=== PATIENT | male | born 1985 | race African-American/Black ===

== ENCOUNTER 2017-07-19 20:17 | Emergency (ER) | payer SELFPAY ==
--- NOTE | 2017-07-19 21:37 | RADIOLOGY REPORT (SQ) ---
EXAM DESCRIPTION: FINGER RIGHT COMPLETED DATE/TIME: 07/19/2017 9:23 pm REASON FOR STUDY: Pain s/p injury COMPARISON: None. NUMBER OF VIEWS: Three views. TECHNIQUE: AP, lateral, and oblique images acquired of the right fourth finger. LIMITATIONS: None. FINDINGS: MINERALIZATION: Normal. BONES: No acute fracture or dislocation. No worrisome bone lesions. SOFT TISSUES: No soft tissue swelling. No foreign body. OTHER: No other significant finding. IMPRESSION: NO RADIOGRAPHIC EVIDENCE OF ACUTE INJURY. COMMENT: SITE OF TRAUMA/COMPLAINT MARKED/STAMP COMPLETED: No TECHNICAL DOCUMENTATION: JOB ID: [id number] [employer]- All Rights Reserved
--- NOTE | 2017-07-19 22:10 | ER Document Report ---
HPI - HPI Pain Level: 4 Notes: Patient is a 32-year-old male no significant past medical history presents ED complaining of a laceration to the fourth right posterior digit that occurred prior to arrival. Patient states that a metal door came down on his hand and he pulled his hand out. Patient states that he has had some bleeding and discomfort to that area since then. Patient denies any drug use. He does admit to smoking. Denies any drug allergies. Patient is still able to move the finger without any difficulties. Denies any headache, fever, chest pain, palpitations, syncope, cough, shortness of breath, wheeze, dyspnea, abdominal pain, nausea/vomiting/diarrhea, or rash. Tetanus utd per patient. <5 yrs. - ROS Notes: REVIEW OF SYSTEMS: CONSTITUTIONAL : Denies fever, chills, or sweats. Denies recent illness. EENT: Denies eye, ear, throat, or mouth pain or symptoms. Denies nasal or sinus congestion or discharge. Denies throat, tongue, or mouth swelling or difficulty swallowing. CARDIOVASCULAR: Denies chest pain. Denies palpitations or racing or irregular heart beat. Denies ankle edema. RESPIRATORY: Denies cough, cold, or chest congestion. Denies shortness of breath, difficulty breathing, or wheezing. GASTROINTESTINAL: Denies abdominal pain or distention. Denies nausea, vomiting , or diarrhea. Denies blood in vomitus, stools, or per rectum. Denies black, tarry stools. Denies constipation. GENITOURINARY: Denies difficulty urinating, painful urination, burning, frequency, blood in urine, or discharge. MUSCULOSKELETAL: Denies back or neck pain or stiffness. Denies joint pain or swelling. SKIN: see hpi NEUROLOGICAL: Denies confusion or altered mental status. Denies passing out or loss of consciousness. Denies dizziness or lightheadedness. Denies headache. Denies weakness or paralysis or loss of use of either side. Denies problems with gait or speech. Denies sensory loss, numbness, or tingling. ALL OTHER SYSTEMS REVIEWED AND NEGATIVE. Dictation was performed using [employer] voice recognition software Past Medical History - Social History Smoking Status: Current Every Day Smoker Chew tobacco use (# tins/day): No Frequency of alcohol use: Rare Drug Abuse: None Family History: Reviewed & Not Pertinent Patient has suicidal ideation: No Patient has homicidal ideation: No Renal/ Medical History: Denies: Hx Peritoneal Dialysis - Immunizations Hx Diphtheria, Pertussis, Tetanus Vaccination: Yes Vertical Provider Document - CONSTITUTIONAL Agree With Documented VS: Yes Notes: PHYSICAL EXAMINATION: GENERAL: Well-appearing, well-nourished and in no acute distress. HEAD: Atraumatic, normocephalic. EYES: Pupils equal round and reactive to light, extraocular movements intact, sclera anicteric, conjunctiva are normal. ENT: EAC clear b/l. TM's intact b/l without erythema, fluid, or perforation. Nares patent and without discharge. oropharynx clear without exudates. No tonsilar hypertrophy or erythema. Moist mucous membranes. No sinus tenderness. NECK: Normal range of motion, supple without lymphadenopathy LUNGS: Breath sounds clear to auscultation bilaterally and equal. No wheezes rales or rhonchi. HEART: Regular rate and rhythm without murmurs, rubs, gallops. ABDOMEN: Soft, nontender, nondistended abdomen. No guarding, no rebound. No masses appreciated. Normal bowel sounds present. No CVA tenderness bilaterally. Musculoskeletal: Rt hand/fingers: FROM to passive/active. Strength 5+/5. N/V intact distal. Extremities: No cyanosis, clubbing, or edema b/l. Peripheral pulses 2+. Capillary refill less than 3 seconds. NEUROLOGICAL: Cranial nerves grossly intact. Normal speech, normal gait. Normal sensory, motor exams PSYCH: Normal mood, normal affect. SKIN: Rt 4th digit: Flap laceration to the rt 4th digit, no linear. + superficial. No ligamentous/tendon compromise. N/V intact. - INFECTION CONTROL TRAVEL OUTSIDE OF THE [place] IN LAST 30 DAYS: No - RESPIRATORY O2 Sat by Pulse Oximetry: 99 Course - Re-evaluation Re-evalutation: 07/19/17 22:50 Patient is an afebrile, well-hydrated, 32-year-old male who presents ED with a superficial laceration to the posterior right fourth digit. Vitals are stable. PE is otherwise unremarkable for any neurovascular compromise, obvious tendon/ ligament rupture, obvious fracture or dislocation. X-ray was unremarkable for any acute pathology. Wound was thoroughly irrigated and cleansed. Patient declined sutures. Steri-Strips were utilized to successfully approximate the wound edges and hemostasis was achieved. A compression wrap was then placed. Wound instructions was reviewed with the patient. I will send him with a prophylactic antibiotic of Keflex. Conservative measures otherwise for symptoms. Recheck with your PCM in 3-5 days. Return to the ED with any worsening/concerning symptoms otherwise as reviewed discharge. Patient is in agreement. - Vital Signs Vital signs: Temp Pulse Resp BP Pulse Ox 98.7 F 95 16 129/77 H 99 07/19/17 20:39 07/19/17 20:39 07/19/17 20:39 07/19/17 20:39 07/19/17 20:39 Procedures - Laceration/Wound Repair Right 4th digit Time completed: 22:30 Wound length (cm): 1.2 Wound's Depth, Shape: Superficial, Irregular. No: Into muscle, Linear Laceration pre-procedure: Sterile PPE donned, Sterile drapes applied, Other - chlorhexadine/saline Wound explored: Clean, No foreign body removed Irrigated w/ Saline (mLs): 60 Wound Debrided: Minimal Wound Repaired With: Steri-strips - 3 Post-procedure wound care: Sterile dressing applied - with compression wrap Post-procedure NV exam normal: Yes Complications: No Discharge - Discharge Clinical Impression: Finger laceration Qualifiers: Encounter type: initial encounter Finger: ring finger Damage to nail status: without damage Foreign body presence: without foreign body Laterality: right Qualified Code(s): S61.214A - Laceration without foreign body of right ring finger without damage to nail, initial encounter Condition: Stable Disposition: HOME, SELF-CARE Instructions: Prophylactic Antibiotic ([facility]), Soap Cleansing ([facility]) Additional Instructions: Do not shower or bathe for 24 hours. After 24 hours you may shower but no submersion of the wound under water. Keep the original dressing on the wound for 24 hours unless the drainage soaks through. Change the dressing daily thereafter. You may leave the wound open to the air once there is no more discharge. Return to the ED and/or your PCM in 3-5 days for a recheck. Monitor for any signs of worsening pain or redness, purulent drainage, streaks, and/or fever. Return to the ED if noticing any of the above symptoms or as needed. Take medications as directed. Prescriptions: Cephalexin Monohydrate [Keflex 500 mg Capsule] 500 mg PO BID #10 capsule Forms: Elevated Blood Pressure, Smoking Cessation Education Referrals: [facility] [Provider Group] - Follow up as needed [facility] [Provider Group] - Follow up as needed
[2017-07-19 22:59] VITALS: BP 124/84
== END 2017-07-19 22:58 | disposition home or self-care (01) ==
LOC: ER 20:17
PROC: 0HQFXZZ Repair Right Hand Skin, External Approach (ICD-10-PCS; principal; 2017-07-19)
DX: S61.214A Laceration without foreign body of right ring finger without damage to nail, initial encounter (principal); W20.8XXA Other cause of strike by thrown, projected or falling object, initial encounter; F17.200 Nicotine dependence, unspecified, uncomplicated
CPT/HCPCS: 99283

== ENCOUNTER 2018-01-07 22:19 | Emergency (ER) | payer SELFPAY | END 2018-01-07 23:35 | disposition left against medical advice (07) | LOC: ER 22:19 | DX: Z53.21 Procedure and treatment not carried out due to patient leaving prior to being seen by health care provider (principal) ==

== ENCOUNTER 2019-01-04 20:25 | Emergency (ER) | payer SELFPAY ==
--- NOTE | 2019-01-04 23:02 | RADIOLOGY REPORT (SQ) ---
EXAM DESCRIPTION: XR HAND 3 OR MORE VIEWS COMPLETED DATE/TME: 01/04/2019 22:07 CLINICAL HISTORY: 33 years, Male, laceration. Caught with saw between third and fourth finger,unable to straighten fingers. COMPARISON: None. NUMBER OF VIEWS: Three TECHNIQUE: One PA, one oblique and one lateral view of the right hand LIMITATIONS: Limited evaluation of the phalanges due to position FINDINGS: Limited evaluation of the phalanges due to and position however, on the lateral view the third and fourth phalanx appear aligned. No discrete fracture. No radiopaque foreign body noted. IMPRESSION: Limited evaluation of the right hand phalanges due to position however, no dislocation or discrete fracture. No radiopaque foreign body. copyright 2010 [employer]- All Rights Reserved
[2019-01-05] MEDS ORDERED: DIPH/PERTUSS(ACELL)/TETANUS VAC/PF 0.5 ML SYR (>=10YO) IM ONE (02:36)
[2019-01-05] MEDS ORDERED: IBUPROFEN 600 MG TABLET PO ONE (02:36)
--- NOTE | 2019-01-05 02:36 | ER Document Report ---
ED Medical Screen (RME) - General Chief Complaint: Laceration Stated Complaint: HAND INJURY Time Seen by Provider: 01/05/19 02:34 Notes: 33-year-old male otherwise healthy presents to the emergency department with a laceration in between his left third and fourth digits by dotty. He was cutting a piece of wood earlier and he sneezed, the saw slipped causing the injury. He is unsure when his last tetanus shot was. He is in acute pain has limited range of motion due to that and also to swelling. Patient's tendons are intact and has a normal distal neurovascular exam. I have greeted and performed a rapid initial assessment of this patient. A comprehensive ED assessment and evaluation of the patient, analysis of test results and completion of medical decision making process will be conducted by an additional ED providers. TRAVEL OUTSIDE OF THE [place] IN LAST 30 DAYS: No - Related Data Allergies/Adverse Reactions: No Known Allergies Allergy (Verified 06/10/15 20:40) Past Medical History Renal/ Medical History: Denies: Hx Peritoneal Dialysis - Immunizations Hx Diphtheria, Pertussis, Tetanus Vaccination: Yes Physical Exam - Vital signs Vitals: Temp Pulse Resp BP Pulse Ox 98.0 F 74 20 121/82 99 01/04/19 21:05 01/04/19 21:05 01/04/19 21:05 01/04/19 21:05 01/04/19 21:05 Course - Vital Signs Vital signs: Temp Pulse Resp BP Pulse Ox 98.0 F 74 20 121/82 99 01/04/19 21:05 01/04/19 21:05 01/04/19 21:05 01/04/19 21:05 01/04/19 21:05
[2019-01-05] MEDS ORDERED: ACETAMINOPHEN 325 MG TABLET PO ONE (03:31)
[2019-01-05] MEDS ORDERED: LIDOCAINE 1% INJ-PF (10 MG/ML) 30 ML SDV INJ ONE (03:32)
[2019-01-05] MEDS ORDERED: OXYCODONE-ACETAMINOPHEN 5-325 MG TABLET PO ONE (03:38)
--- NOTE | 2019-01-05 03:42 | ER Document Report ---
Addendum entered and electronically signed by ROSEMARIE VIZCARRA PA-C 01/07/19 19:16: Procedures - Laceration/Wound Repair Right Hand 3rd digit Wound length (cm): 2 Wound's Depth, Shape: Superficial Laceration pre-procedure: Sterile PPE donned Wound explored: Clean Wound Debrided: Minimal Wound Repaired With: Dermabond Post-procedure NV exam normal: Yes Original Note: HPI - HPI Patient complains to provider of: laceration Pain Level: 5 Context: 33-year-old male otherwise healthy presents to the emergency department with a laceration in between his left third and fourth digits by sawblade. He was cutting a piece of wood earlier and he sneezed, the saw slipped causing the injury. He is unsure when his last tetanus shot was. He is in acute pain has limited range of motion due to the pain and also to swelling. Patient's tendons are intact and has a normal distal neurovascular exam. - CONSTITUTIONAL Constitutional: DENIES: Fever, Chills - EENT EENT: DENIES: Sore Throat, Ear Pain, Eye problems - NEURO Neurology: DENIES: Headache - CARDIOVASCULAR Cardiovascular: DENIES: Chest pain - RESPIRATORY Respiratory: DENIES: Trouble Breathing, Coughing - GASTROINTESTINAL Gastrointestinal: DENIES: Abdominal Pain, Black / Bloody Stools - URINARY Urinary: DENIES: Dysuria, Urgency, Frequency - MUSCULOSKELETAL Musculoskeletal: REPORTS: Extremity pain <ROSEMARIE VIZCARRA - Last Filed: 01/05/19 04:16> <GOSIA DIAZ - Last Filed: 01/06/19 00:12> - HPI Time Seen by Provider: 01/05/19 02:34 Past Medical History - Social History Smoking Status: Current Every Day Smoker Family History: Reviewed & Not Pertinent Patient has suicidal ideation: No Patient has homicidal ideation: No Renal/ Medical History: Denies: Hx Peritoneal Dialysis - Immunizations Hx Diphtheria, Pertussis, Tetanus Vaccination: Yes <ROSEMARIE VIZCARRA - Last Filed: 01/05/19 04:16> Vertical Provider Document - CONSTITUTIONAL Notes: PHYSICAL EXAMINATION: Reviewed vital signs and charting by RN GENERAL: Well-appearing, well-nourished and in no acute distress. HEAD: Atraumatic, normocephalic. No scalp deformity EXTREMITIES: Normal range of motion, No cyanosis. Very limited range of motion in his right third fourth and fifth digits, they are in a position of flexion, he has acute pain with any movement and manipulation. There is edema associated with it. His flexor and extensor tendons are intact NEUROLOGICAL: No focal neurological deficits. Cranial nerves III-XII grossly intact. Moves all extremities spontaneously and on command. PSYCH: Normal mood, normal affect. No suicidal thoughts/ideations. No homocidal thoughts/ideations. No hallucinations. SKIN: Warm, dry, normal turgor, no rashes or lesions noted. - INFECTION CONTROL TRAVEL OUTSIDE OF THE [place] IN LAST 30 DAYS: No <ROSEMARIE VIZCARRA - Last Filed: 01/05/19 04:16> Course - Re-evaluation Re-evalutation: 01/05/19 03:41 Plan is to suture 2 cm laceration between the third and fourth digits. He is in acute pain so we will give him Percocet 5. I asked Dr. Diaz, supervising physician, to briefly inspect the wound as it seems that his pain and limited range of motion is out of proportion to the injury. X-ray was done of the hand and it was negative. 01/05/19 04:[address] Diaz to come quickly assessed the patient. She feels that it is pain that is restricting his range of motion. Wound is superficial enough that we will place Steri-Strips on a placement of splint. I will also cover him with 5 days of prophylaxis to cover MSSA. Short dose of narcotics to take home to cover him for the next day or 2 through the acute phase. I instructed him to take Motrin 600 mg every 6 hours with food or milk while awake - Vital Signs Vital signs: Temp Pulse Resp BP Pulse Ox 98.0 F 74 20 121/82 99 01/04/19 21:05 01/04/19 21:05 01/04/19 21:05 01/04/19 21:05 01/04/19 21:05 <ROSEMARIE VIZCARRA - Last Filed: 01/05/19 04:16> - Re-evaluation Re-evalutation: 01/06/19 00:09 Patient was seen and examined as requested by APC this is a 33-year-old male who cut. His hand on a saw prior to arrival. This is a 2 cm superficial laceration to third and fourth digits. Not disposition where this would affect the tendon. When coached patient can extend his fingers. No past [place] signs. Advise antibiotics, tetanus update. Because the wound is dirty and superficial I do not feel patient should undergo suture repair at this time. PHYSICAL EXAMINATION: GENERAL: Well-appearing, well-nourished and in no acute distress. HEAD: Atraumatic, normocephalic. EYES: Pupils equal round extraocular movements intact, conjunctiva are normal. ENT: Nares patent NECK: Normal range of motion LUNGS: No respiratory distress Musculoskeletal: Normal range of motion NEUROLOGICAL: Normal speech, normal gait. PSYCH: Normal mood, normal affect. SKIN: 2 cm superficial laceration to the webspace between the third and fourth digit of the left hand. - Vital Signs Vital signs: Temp Pulse Resp BP Pulse Ox 98.0 F 77 18 118/70 97 01/05/19 05:12 01/05/19 05:12 01/05/19 05:12 01/05/19 05:12 01/05/19 05:12 - Diagnostic Test Radiology reviewed: Image reviewed, Reports reviewed <GOSIA DIAZ - Last Filed: 01/06/19 00:12> Procedures - Immobilization Left Hand Immobilizer type: Cock-up Performed by: PCT Post-Proc Neuro Vasc Exam: Normal Alignment checked and good: Yes <ROSEMARIE VIZCARRA - Last Filed: 01/05/19 04:16> Discharge <ROSEMARIE VIZCARRA - Last Filed: 01/05/19 04:16> <GOSIA DIAZ - Last Filed: 01/06/19 00:12> - Discharge Clinical Impression: Laceration Condition: Good Disposition: HOME, SELF-CARE Instructions: Antibiotic Ointment Protection ([facility]), Oral Narcotic Medication ([facility]), Prophylactic Antibiotic ([facility]), Soap Cleansing ([facility]), Tetanus Immunization Given ([facility]) Additional Instructions: Please return to your primary doctor, the ED, or an urgent care if you develop spreading redness around the wound, pus from the wound, worsening pain, or a fever of >101. Keep the area clean and dry. Wash gently with soap and water twice daily and cover with antibiotic ointment. Prescriptions: RX: Cephalexin Monohydrate [Keflex 500 mg Capsule] 500 mg PO Q6H 5 Days capsule
[2019-01-05] MEDS ORDERED: CEPHALEXIN 500 MG CAPSULE PO ONE (04:21)
[2019-01-05] MEDS ORDERED: HYDROCODONE/ACETAMINOPHEN 5-325 MG (6 TAB/ER DISP) PO PRN (04:23)
[2019-01-05 05:12] VITALS: BP 118/70
== END 2019-01-05 05:15 | disposition home or self-care (01) ==
LOC: ER 20:25
DX: S61.412A Laceration without foreign body of left hand, initial encounter (principal); W27.8XXA Contact with other nonpowered hand tool, initial encounter; Y93.89 Activity, other specified; F17.200 Nicotine dependence, unspecified, uncomplicated; Z23 Encounter for immunization
CPT/HCPCS: 99283; 90471; 73130; 90715; 12001; J3490